=== PATIENT | male | born 1950 | race Caucasian/White ===

== ENCOUNTER 2019-02-15 14:04 | Day surgery (SDC) | payer MEDICARE, SELFPAY ==
--- NOTE | 2019-02-15 | PATH_ITS ---
[facility] Accession Number: [id number] . 01 Material submitted: . PART A: colon - POLYP TRANSVERSE COLON PART B: rectum - RECTAL POLYP . 01 Clinical history: . ENCOUNTER FOR SCREENING FOR MALIGNANT NEOPLASM OF . 02 Diagnosis: A. Transverse Colon, Polyp: Hyperplastic polyp. . B. Rectum, Polyp: Tubular adenoma. MRV 02/18/2019 1050 Local . 02 Electronically signed: . Mitch Mcmahan MD, PhD, Pathologist NPI- [id number] . 01 Gross description: . (A) Received in formalin, labeled polyp transverse colon, are multiple fragments of rodriugez tissue (0.6 x 0.5 x 0.1 cm in aggregate). Filtered and entirely submitted in cassette A1. (B) Received in formalin, labeled rectal polyp, is a fragment of rodriguez tissue (0.5 x 0.2 x 0.2 cm). Entirely submitted in cassette B1. ([id number]) /MRV 02/17/2019 1926 Local . 02 Pathologist provided ICD-10: D12.8, K63.5 . 02 CPT . 577403, [id number] Performed at: 01 [facility] [address], [place], [place] [id number] MD Jatinder Ortiz MD Phone: [phone] Performed at: 02 [facility] [address] [place], [place] [id number] MD Kiana Telles MD Phone: [phone]
[2019-02-15 14:35] VITALS: BP 139/85; PULSE 61; RESP 20; TEMP 36.8; O2SAT 99; BMI 25.6
[2019-02-15] MEDS: SODIUM CHLORIDE 0.9% 1,000 ML 200 ML IV (14:51)
--- NOTE | 2019-02-15 15:47 | PM.OP.ENDO ---
Operative Date/Time/Diagnoses Date of procedure: 02/15/19 Time of procedure: 16:37 Pre-op diagnosis: Colorectal cancer screening Post-op diagnosis: same Procedure & Clinicians Study performed: Diagnostic colonoscopy-complete Cold snare polypectomy transverse colon x1 Cold snare polypectomy rectum x1 Same procedure as scheduled: Yes Indications: 68-year-old man 13 years status post most recent colonoscopy. History of hyperplastic polyps Surgeon: Von Garrett Procedure Notes SCOAP/Timeout: Completed Procedure in detail: Patient brought to the endoscopy suite a time-out was completed. He was sedated over the entire course of the procedure with 9 mg of midazolam and 175 micro g of fentanyl. A digital rectal exam was performed without lesions. 160 cm colonoscope was advanced through the folds of the rectum and colon until the cecum was encountered. The cecum was identified via a ileocecal valve -the patient was status post an appendectomy in the past, large diameter of the cecum was appreciated. The scope was then slowly withdrawn inspecting the mucosa. A moderate amount of adherent green mucus was washed from the mucosal surfaces to fully inspected, within the distal transverse colon a pedunculated moderately sized polyp was identified and removed via snare polypectomy -this was suction through the suction port of the scope and captured in a trap. The remainder of the colon was notable for moderately severe diverticulosis of the sigmoid colon. There is no evidence of active inflammation. The scope was then withdrawn to the rectum where an additional small pedunculated polyp was identified and removed via cold snare Scope was retroflexed within the distal rectum and no additional lesions were seen Prep adequate Scope withdrawal time: 17 Sedation minutes: 36 Specimen(s): other (Transverse colon polyp. Rectal polyp) Complications: none Impression: 1. Moderately severe sigmoid diverticulosis 2. Transverse colon polyp status post snare polypectomy 3. Rectal colon polyp status post snare polypectomy Post-procedure Recommendations: Colonscopy in 5 years Plan for aftercare: PACU then home Follow up: as needed Disposition: PACU
--- NOTE | 2019-02-15 15:48 | PM.HP.1 ---
History of Present Illness History of Present Illness Date Patient Seen: 02/15/19 Time Patient Seen: 15:48 Chief complaint: [id number] Narrative: 68-year-old man presents 13 years status post resuming recent colonoscopy -for colorectal cancer screening History of 2 polyps identified on last colonoscopy but both hyperplastic Tolerated his prep No family history of colon cancer Patient History Social History household members: significant other Family & Social History Social History: household members significant other Meds Home Medications and Allergies Home Medications Medication Instructions Recorded Confirmed Type losartan 100 mg PO DAILY 02/15/19 02/15/19 History Allergies Allergy/AdvReac Type Severity Reaction Status Date / Time No Known Drug Allergies Allergy Verified 02/15/19 14:26 Review of Systems Constitutional Constitutional: Denies fever(s) Eyes Eyes: Denies bulging eyes ENT Ears, Nose, Mouth, and Throat: No lip swelling Cardiovascular Cardiovascular: Denies generalize swelling Respiratory Respiratory: Denies stridor Gastrointestinal Gastrointestinal: Denies coffee ground emesis Musculoskeletal Musculoskeletal: Denies loss of height Integumentary/Breasts Skin/Breast: Denies wounds Neurologic Neurologic: Denies abnormal speech and Denies confusion Psychiatric Psychiatric: Denies confusion and Denies tactile hallucinations Endocrine Endocrine: Denies deepening of the voice Hematologic/Lymphatic Hematologic/Lymphatic: Denies lymphadenopathy Allergic/Immunologic Allergic/Immunologic: Denies lip swelling Exam Vital Signs (past 8 hours): - 02/15/19 14:35 Temperature 98.2 F Pulse Rate 61 Respiratory Rate 20 Blood Pressure 139/85 Pulse Oximetry 99 Oxygen Delivery Method Room Air Const General: cooperative and healthy appearing Orientation: alert HENMT Head: normal to inspection Nose: nares normal Mouth: oral mucosae normal and lip normal Eyes Eyelids: eyelids normal Conjunctivae: conjunctivae normal Sclera: sclerae normal Neck Neck: supple and other (No thyromegally) Chest Chest: other (LCTAB , regular respiratory effort) Cardio Rhythm: regular rhythm Heart Sounds: S1 normal, S2 normal, no gallops, no murmurs and no rubs GI Other: Jonas-Pedro Luis incisional scar , abdomen soft nontender nondistended Skin General: no rashes or lesions noted Neuro General: alert and awake Psych Appearance: grossly normal Affect: normal affect Assessment & Plan Assessment & Plan narrative: 68-year-old man presents for screening colonoscopy Risks and benefits of presumed seizure discussed including risks of bleeding, perforation, , missed lesion, hypoxia All questions answered patient ready to proceed
[2019-02-15] MEDS: fentaNYL 250 MCG/5 ML INJ IV (16:28)
[2019-02-15] MEDS: MIDAZOLAM 5 MG/5 ML VIAL IV (16:29)
[2019-02-15 16:42] VITALS: BP 112/72; PULSE 49; RESP 13; TEMP 36.2; O2SAT 96
[2019-02-15 16:47] VITALS: BP 105/65; PULSE 51; RESP 15; O2SAT 95
[2019-02-15 16:52] VITALS: BP 101/65; PULSE 44; RESP 15; O2SAT 98
--- NOTE | 2019-02-15 17:01 | SUR.PHASEI ---
Dr Garrett to to talk with pt about colonoscopy results. Pt sedated breathing on own, 02 via nasal cannula.
[2019-02-15 17:11] VITALS: BP 116/71; PULSE 49; RESP 14; TEMP 36.4; O2SAT 94
[2019-02-15 17:30] VITALS: BP 119/79; PULSE 60; RESP 16; TEMP 36.6; O2SAT 99
== END 2019-02-15 17:45 | disposition home or self-care (01) ==
PROVIDERS: Family Provider Family Medicine Geriatric Medicine; PCP Family Medicine Geriatric Medicine; Visit Provider Surgery
PROC: 0DJD8ZZ Inspection of Lower Intestinal Tract, Via Natural or Artificial Opening Endoscopic (ICD-10-PCS; CPT 45378; principal; 2019-02-15 15:00)
DX: Z86.010 Personal history of colon polyps (principal); D12.8 Benign neoplasm of rectum; K57.30 Diverticulosis of large intestine without perforation or abscess without bleeding
CPT/HCPCS: 45385; 99152; 99153; J2250; J3010

== ENCOUNTER → 2024-11-18 13:04 | Outpatient (CLI) | payer MEDICARE, SELFPAY ==
--- NOTE | 2024-11-18 13:05 | DI.ECHO.S_ITS ---
[facility] : : [id number] : [place] : : [id number] : : Phone: [phone] Echocardiogram Report + + :Name: SOULEYMANE REGAN Study Date: 11/18/2024 Height: 74 in : :[facility] ReadingLocation: Weight: 199 lb : : Gender: Male BSA: 2.2 m2 : :: 1950 Age: 74 yrs BP: 152/86 mmHg: :Reason For Study: Aortic, Ascending Aneurysm : :Ordering Physician: Alia, : :Willian Whalen M.D. Performed By: Heidy Rico : :Referring: Willian Rojo : + + Interpretation Summary The left ventricle is normal in size and wall thickness. The left ventricular ejection fraction is normal. The ejection fraction is estimated to be 55-60%. The right ventricle is grossly normal size. The right ventricular systolic function is normal. There is mild aortic regurgitation. The IVC is of normal diameter and collapses greater than 50% with a sniff. This suggests a low right atrial pressure of 3 mm Hg. The ascending aorta is at the upper limits of normal in size. 3.9 cm in diameter. Body surface area 2.2 mA???. On outside echo in August 2023 ascending aorta diameter about 4.0 cm. LV ejection fraction reported to be 55 to 60% with mild MR, mild AR and mild TR. Procedure: A two-dimensional transthoracic echocardiogram with color flow and Doppler was performed. The study quality was technically adequate. Comparison is made with the echocardiogram of 01-07-14. The heart rate ranged between 52-67 bpm during the study. The patient was in normal sinus rhythm during the exam. Left Ventricle: The left ventricle is normal in size and wall thickness. There is no thrombus. The ejection fraction is estimated to be 55-60%. The left ventricular ejection fraction is normal. No obvious significant wall motion abnormalities. Diastolic parameters suggest probable normal left ventricular diastolic function and normal filling pressures. Right Ventricle: The right ventricle is grossly normal size. The right ventricular systolic function is normal. Atria: The left atrial size is normal. Right atrial size is normal. The interatrial septum grossly appears intact with no obvious evidence for an atrial septal defect. Mitral Valve: The mitral valve is normal in structure and function. There is trace mitral regurgitation. Aortic Valve: The aortic valve is trileaflet. The aortic valve opens well. There is mild aortic regurgitation. Tricuspid Valve: The tricuspid valve leaflets are thin and pliable. There is trace tricuspid regurgitation. The right ventricular systolic pressure is estimated to be at least 30 mmHg based on an estimated right atrial pressure of 3 mm Hg. Pulmonic Valve: The pulmonic valve is not well visualized. There is a trace or physiologic amount of pulmonic regurgitation. Great Vessels: The aortic root is normal size. The ascending aorta is at the upper limits of normal in size. The aortic arch is normal in size. The IVC is of normal diameter and collapses greater than 50% with a sniff. This suggests a low right atrial pressure of 3 mm Hg. Pericardium/ Pleura There is no pericardial effusion. There is no pleural effusion. MMode/2D Measurements & Calculations LVIDd: 5.4 cm LVOT diam: 2.1 cm LVIDs: 3.6 cm Ao root diam: 3.8 cm FS: 32.9 % asc Aorta Diam: 3.9 cm EPSS: 0.34 cm Ao Arch Diam (Prox Trans): 2.9 cm IVSd: 0.70 cm LVPWd: 0.81 cm LV geronimo. diameter/BSA (cm/m^2): 2.5 LV sys. diameter/BSA (cm/m^2): 1.7 LA A2 area: 21.8 cm2 RA long axis: 5.6 cm LA A4 area: 23.2 cm2 RA area: 18.0 cm2 LA length (vol): 6.6 cm RA vol: 49.5 ml LA vol: 65.2 ml RA : 22.8 ml/m2 LA vol index: 30.1 ml/m2 IVC diam: 1.9 cm RVD1 (basal): 2.7 cm TAPSE: 3.6 cm Doppler Measurements & Calculations Ao V2 max: 146.5 cm/sec LVOT Max Osmar: 101.2 cm/sec Ao V2 mean: 95.6 cm/sec LV V1 max P.1 mmHg Ao max P.6 mmHg LV V1 VTI: 23.6 cm Ao mean P.5 mmHg GABBIE(I,D): 2.7 cm2 Ao V2 VTI: 30.6 cm GABBIE(V,D): 2.4 cm2 sev ratio: 0.77 GABBIE indexed to BSA (cm^2/m^2): 1.2 AI P1/2t: 779.4 msec AI dec slope: 179.5 cm/sec2 MV E max osmar: 57.6 cm/sec TR max osmar: 259.7 cm/sec MV A max osmar: 57.6 cm/sec TR max P.0 mmHg MV E/A: 1.0 PA V2 max: 80.0 cm/sec Med Peak E' Osmar: 7.6 cm/sec PA V2 mean: 50.8 cm/sec E/E' med: 7.6 PA mean P.2 mmHg Lat Peak E' Osmar: 5.8 cm/sec PA pr(Accel): 10.5 mmHg E/E' lat: 10.0 E/e' average: 8.8 MV dec time: 0.23 sec SV(LVOT): 82.2 ml Reading Physician:03:35 PM
== END ==
LOC: ECHO 13:04
PROVIDERS: Family Provider Family Medicine Geriatric Medicine; Referring Provider Internal Medicine Cardiovascular Disease; Visit Provider Internal Medicine Cardiovascular Disease
DX: I77.810 Thoracic aortic ectasia (principal); I35.1 Nonrheumatic aortic (valve) insufficiency
CPT/HCPCS: 93306

== ENCOUNTER 2024-11-19 08:46 | Day surgery (SDC) | payer MEDICARE, SELFPAY ==
[2024-11-19 09:11] VITALS: BP 138/88; PULSE 84; RESP 18; TEMP 36.5; O2SAT 99
[2024-11-19] MEDS: LACTATED RINGERS 1,000 ML 42 ML IV (09:32)
[2024-11-19 11:00] VITALS: BP 134/87; PULSE 69; RESP 20; TEMP 36.4; O2SAT 98
[2024-11-19 11:05] VITALS: BP 135/94; PULSE 66; RESP 18; TEMP 36.4; O2SAT 97
--- NOTE | 2024-11-19 11:08 | P.OP.COLON_ITS ---
Operative Date/Time/Diagnoses Date of procedure: 11/19/24 Time of procedure: 11:08 Pre-op diagnosis: Screening colonoscopy Post-op diagnosis: same Procedure & Clinicians Study performed: Colonoscopy Same procedure(s) as scheduled: Yes Indications: H/O polyps in transverse colon (hyperplastic), rectum (tubular adenoma), sigmoid diverticulosis. Presents for f/u exam. Surgeon: Herve Perera Procedure Notes SCOAP/Timeout: Performed Procedure in detail: Procedure Notes Procedure in detail: Patient placed in left lateral recumbent position. Time out was performed. Procedural sedation was administered by anesthesia. Examination began with a thorough inspection of the perianal area there was no evidence of fissures, fistulae, external hemorrhoids or cutaneous malignancy. The colonosco py scope was then placed into the rectum the lumen was insufflated with air. The scope was carefully advanced forward. Ultimately the cecum was intubated and confirmed by identification of the ileocecal valve, the appendiceal orifice and the confluence of the taenia. The scope was then slowly withdrawn examining colon thoroughly in all directions. In the rectum retroflexion of the scope was performed for inspection of the distal rectum and anal canal. The colonoscopy was notable for the followin. Quality of the preparation-good, [place] bowel prep score 2 2. No polyps detected 3. Sigmoid diverticulosis Scope withdrawal time: 7 minutes Findings: divertiulosis Specimen(s): none sent Complications: none Impression: Screening colonoscopy without polyps. H/O tubular adenoma. F/U exam in 5 years. Post-procedure Recommendations: Colonoscopy in 5 years Disposition: PACU
[2024-11-19 11:10] VITALS: BP 139/91; PULSE 65; RESP 15; TEMP 36.4; O2SAT 98
--- NOTE | 2024-11-20 09:36 | PM.HP.IH.1 ---
History of Present Illness History of Present Illness Date Patient Seen: 11/19/24 Time Patient Seen: 10:30 [place] [facility] [place]: 74yo M, h/o colon polyps, presents for 5 yr f/u exam. H/O hyperplastic polyp in transverse colon and tubular adenoma in rectum. [facility] Medical History (Updated 11/20/24 @ 09:39 by Herve Perera MD) Ascending aorta dilatation PVCs (premature ventricular contractions) HTN (hypertension) Social History household members: significant other Smoking Status: Former smoker Meds Home Medications and Allergies Home Medications ?Medication ?Instructions ?Recorded ?Confirmed ?Type candesartan 16 mg tablet 8 mg PO DAILY 09/27/24 11/19/24 History sodium,potassium,mag sulfates 17.5 See Rx Instructions PO .COMPLEX 10/30/24 Rx gram-3.13 gram-1.6 gram oral soln #354 mL (Suprep Bowel Prep Kit) Allergies Allergy/AdvReac Type Severity Reaction Status Date / Time No Known Drug Allergies Allergy Verified 11/19/24 09:09 Exam Vital Signs (past 8 hours): Oxygen Delivery Method Room Air Const General: comfortable Nutritional Appearance: well nourished HENIL Head: normal to inspection and normocephalic Ears: hearing grossly normal bilaterally and external ears normal Nose: external nose normal Eyes Visual Cesar: normal visual cesar by confrontation EOM: EOM intact bilaterally Resp Effort & Inspection: normal respiratory effort and able to speak in complete sentences Cardio Rate: regular rate GI Palpation: soft (non-tender) Neuro General: patient alert and patient oriented x3 Extrem General: normal to inspection Assessment & Plan Assessment and plan (1) Colonoscopy planned: Status: Acute Assessment & Plan narrative: Here for screening colonoscopy today The risks, benefits and options were explained to him in detail. He understands and is agreeable to proceed. Time-Based Coding :: [TOTAL MINUTES] spent with patient and on the chart (including review of chart, obtaining history, exam, reviewing outside data, placing orders, documenting exam and treatment plan, and counseling patient) on [DATE]. PROFEE Mold Cooler Document charge(s): No
== END 2024-11-19 11:32 | disposition home or self-care (01) ==
PROVIDERS: Family Provider Family Medicine Geriatric Medicine; Referring Provider Surgery; Visit Provider Surgery
PROC: 0DJD8ZZ Inspection of Lower Intestinal Tract, Via Natural or Artificial Opening Endoscopic (ICD-10-PCS; CPT 45378; principal; 2024-11-19 10:00)
DX: Z12.11 Encounter for screening for malignant neoplasm of colon (principal); Z86.0100 Personal history of colon polyps, unspecified; K57.30 Diverticulosis of large intestine without perforation or abscess without bleeding
CPT/HCPCS: G0105; J2405; J2704